=== PATIENT | female | born 1955 | race Caucasian/White ===

== ENCOUNTER → 2016-10-12 | Outpatient (CLI) | payer OTHER ==
[~2016-10-12] MED LIST: ATV5 PO; CLX20 PO; IBUP600T44 PO; OXYC-57 PO
--- NOTE | 2016-10-13 12:36 | MAMMOGRAPHY REPORT ---
BILATERAL DIGITAL SCREENING MAMMOGRAM TOMOSYNTHESIS WITH CAD: 10/12/2016 CLINICAL HISTORY: Routine screening examination. TECHNIQUE: Breast tomosynthesis in addition to standard 2D mammography was performed. Current study was also evaluated with a Computer Aided Detection (CAD) system. COMPARISON: Comparison is made to exams dated: 10/08/2015 mammogram, 10/02/2014 mammogram, 07/18/2013 mammogram, and 07/13/2011 mammogram - [facility]. BREAST COMPOSITION: The tissue of both breasts is almost entirely fatty. FINDINGS: There is stable nodularity in the lateral left breast. No suspicious mass, architectural distortion or cluster of microcalcifications is seen. IMPRESSION: ACR BI-RADS CATEGORY 1: NEGATIVE There is no mammographic evidence of malignancy. A 1 year screening mammogram is recommended. The p atient will receive written notification of the results. Approximately 10% of breast cancers are not detected with mammography. A negative mammographic repor t should not delay biopsy if a clinically suggestive mass is present. Petra Davidson M.D. ay/:10/12/2016 17:09:27 Fruit And Vegetable Packer: Kerry PITTS)(Kaycee), [facility] letter sent: Normal 1/2 BI-RADS Code: ACR BI-RADS Category 1: Negative
== END | disposition home or self-care (01) ==
LOC: C.MAMM 08:55
PROVIDERS: ATTEND Obstetrics & Gynecology
DX: Z12.31 Encounter for screening mammogram for malignant neoplasm of breast (principal)

== ENCOUNTER → 2017-10-13 | Outpatient (CLI) | payer OTHER ==
--- NOTE | 2017-10-13 15:17 | MAMMOGRAPHY REPORT ---
BILATERAL DIGITAL SCREENING MAMMOGRAM TOMOSYNTHESIS WITH CAD: 10/13/2017 CLINICAL HISTORY: Routine screening. Patient has no complaints. TECHNIQUE: Breast tomosynthesis in addition to standard 2D mammography was performed. Current study was also evaluated with a Computer Aided Detection (CAD) system. COMPARISON: Comparison is made to exams dated: 10/12/2016 mammogram, 10/08/2015 mammogram, 10/02/2014 m ammogram, 07/18/2013 mammogram, 07/14/2012 mammogram, and 07/13/2011 mammogram - [facility]. BREAST COMPOSITION: The tissue of both breasts is almost entirely fatty. FINDINGS: No suspicious masses, calcifications, or areas of architectural distortion are noted in ei ther breast. There has been no significant interval change compared to prior exams. IMPRESSION: ACR BI-RADS CATEGORY 1: NEGATIVE There is no mammographic evidence of malignancy. A 1 year screening mammogram is recommended. The pa tient will receive written notification of the results. Approximately 10% of breast cancers are not detected with mammography. A negative mammographic report should not delay biopsy if a clinically suggestive mass is present. Silke Recinos M.D. ah/:10/13/2017 14:40:12 Onion Farmer: Nakia PA(Thu)(M), [facility] letter sent: Normal 1/2 BI-RADS Code: ACR BI-RADS Category 1: Negative
== END | disposition home or self-care (01) ==
LOC: C.MAMM 09:10
PROVIDERS: ATTEND Physician Assistant
DX: Z12.31 Encounter for screening mammogram for malignant neoplasm of breast (principal)

== ENCOUNTER 2022-03-08 20:53 | Inpatient (IN) ==
[2022-03-08] MEDS ORDERED: STAT IV Infusion **Titration per Protocol STA (21:19)
[2022-03-08] MEDS ORDERED: dilTIAZem HCl 5 MG/ML 5 ML VIAL IV STA (21:19)
[2022-03-08 21:23] LABS: Basophils # (auto) 0.04 K/uL (0-0.2); Basophils % (auto) 0.5 %; Eosinophils # (auto) 0.19 K/uL (0-0.50); Eosinophils % (auto) 2.3 %; Hematocrit (blood only) 41.2 % (34.1-44.9); Hemoglobin 14.1 g/dl (12.0-16.0); Immature Granulocytes # (auto) 0.02 K/uL (0.00-0.02); Immature Granulocytes % (auto) 0.2 %; Lymphocytes # (auto) 3.52 K/uL (1.2-3.4); Lymphocytes % (auto) 42.8 %; Mean Corpuscular Hemoglobin 30.7 pg (25.0-34.0); Mean Corpuscular Hgb Conc 34.2 g/dL (32.0-36.0); Mean Corpuscular Volume 89.8 fL (80.0-100.0); Mean Platelet Volume 10.6 fL (9.4-12.3); Monocytes # (auto) 0.84 K/uL (0.24-0.82); Monocytes % (auto) 10.2 %; Neutrophils # (auto) 3.61 K/uL (1.4-6.5); Platelet Count 262 K/uL (130-400); RDW Coefficient of Variation 11.9 % (11.5-14.5); RDW Standard Deviation 38.6 fL (36.4-46.3); Red Blood Count 4.59 M/uL (3.93-5.22); White Blood Count 8.22 K/ul (4.8-10.8)
[2022-03-08] MEDS ORDERED: dilTIAZem HCL 125 MG in DEXTROSE 5% 100 ML IV SCH (21:30)
[2022-03-08] MEDS ORDERED: SODIUM CHLORIDE 0.9% 1000ML 1,000 ML IV SCH (21:30)
[2022-03-08 22:06] LABS: Troponin I High Sensitivity 12.9 pg/ml (0-14)
--- NOTE | 2022-03-08 22:06 | Emergency Department Note ---
History of Present Illness General Chief complaint: Tachycardia Stated complaint: ERATIC HEART BEAT, TACHYCARDIA Time Seen by Provider: 03/08/22 21:10 Source: patient Mode of arrival: ambulatory Limitations: no limitations History of Present Illness Provider complaint: palpitations This is a 67-year-old female who presents due to abrupt onset of palpitations. Patient denies prior history of palpitations, however states she does follow with cardiology for other problems. Patient states she sees Dr. Gibbs as they watch a mild form of hypertrophic obstructive cardiomyopathy on her. She states she did just have a recent outpatient echo and did wear an electrical monitor. Patient denies any recent illness, fevers or chills. She states she did have a Coke this afternoon which is unusual for her. She does admit to recent wine consumption which she states she does use periodically. She states her caffeine consumption has not otherwise changed and she felt she had been staying well- hydrated. She denies any coming pain or pressure, shortness of breath, dizziness, nausea or diaphoresis. Patient denies any change in bowel or bladder function. No recent leg swelling. Pt seen during a time of high acuity and national emergency pandemic while wearing PPE. Home Medications Medication Instructions Recorded Confirmed Type cholecalciferol (vitamin D3) 50 50 mcg PO DAILY 03/08/22 03/08/22 History mcg (2,000 unit) capsule (Vitamin D3) latanoprostene bunod 0.024 % eye 1 drp OPB HS 03/08/22 03/08/22 History drops (Vyzulta) lorazepam 0.5 mg tablet 0.5 - 1 mg PO DAILY PRN Anxiety 03/08/22 03/08/22 History losartan 50 mg tablet 50 mg PO QAM 03/08/22 03/08/22 History metoprolol succinate 100 mg 100 mg PO QAM 03/08/22 03/08/22 History tablet,extended release 24 hr apixaban 5 mg tablet (Eliquis) 5 mg PO Q12H #60 tabs 03/09/22 Rx Allergies Allergy/AdvReac Type Severity Reaction Status Date / Time morphine Allergy Severe RESP. Verified 03/08/22 22:25 DISTRESS Past Med/Surg History Social History Smoking Status: Never smoker Hx Alcohol Use: Yes Alcohol type: wine Hx Substance Use: No Preferred Language: Polish Communication Ability: Effective School Aide Required: No Beliefs That Will Affect Care: None marital status: Current Living Situation: Spouse Other Information That Helps Us Care for You: No Feels Safe at Home: Yes Safety Concerns: Feels Safe At This Time Assistive Devices: None Review of Systems A total of 10 systems reviewed and were otherwise negative All systems reviewed & are unremarkable except as noted in HPI & below Physical Exam Vital Signs Vital Signs - 24 hr 03/08/22 20:54 03/08/22 21:45 03/08/22 21:45 Temperature 36.9 C Temperature Source Temporal Artery Scan Pulse Rate 162 H Pulse Rate [Apical] 127 H Pulse Rate from SpO2 Sensor Respiratory Rate 20 25 H Respiratory Effort / Characteristics Non-Labored Respiratory Depth Normal Blood Pressure 157/79 H Blood Pressure [Right Arm] 121/77 Blood Pressure Mean 105 Blood Pressure Mean [Right Arm] 91 Blood Pressure Position Sitting Blood Pressure Position [Right Arm] Pulse Oximetry 96 93 95 Oxygen Delivery Method Room Air Room Air Room Air Sepsis Recent Fever Within 48 Hours No Sepsis New/Unexplained Change in Mental Status N/A Sepsis Action Taken by Nursing No Action Required 03/08/22 21:05 03/08/22 21:10 03/08/22 21:20 Temperature Temperature Source Pulse Rate 163 H 156 H 143 H Pulse Rate [Apical] Pulse Rate from SpO2 Sensor 144 H 146 H 122 H Respiratory Rate 21 24 20 Respiratory Effort / Characteristics Respiratory Depth Blood Pressure Blood Pressure [Right Arm] Blood Pressure Mean Blood Pressure Mean [Right Arm] Blood Pressure Position Blood Pressure Position [Right Arm] Pulse Oximetry 97 97 95 Oxygen Delivery Method Sepsis Recent Fever Within 48 Hours Sepsis New/Unexplained Change in Mental Status Sepsis Action Taken by Nursing 03/08/22 21:38 03/08/22 21:40 03/08/22 21:42 Temperature Temperature Source Pulse Rate 159 H 153 H Pulse Rate [Apical] Pulse Rate from SpO2 Sensor 150 H 152 H Respiratory Rate 16 20 Respiratory Effort / Characteristics Respiratory Depth Blood Pressure 136/100 Blood Pressure [Right Arm] Blood Pressure Mean 112 Blood Pressure Mean [Right Arm] Blood Pressure Position Blood Pressure Position [Right Arm] Pulse Oximetry 94 95 Oxygen Delivery Method Sepsis Recent Fever Within 48 Hours Sepsis New/Unexplained Change in Mental Status Sepsis Action Taken by Nursing 03/08/22 21:42 03/08/22 21:45 03/08/22 21:45 Temperature Temperature Source Pulse Rate 145 H 129 H Pulse Rate [Apical] Pulse Rate from SpO2 Sensor 141 H 127 H Respiratory Rate 24 23 Respiratory Effort / Characteristics Respiratory Depth Blood Pressure 121/77 Blood Pressure [Right Arm] Blood Pressure Mean 91 Blood Pressure Mean [Right Arm] Blood Pressure Position Blood Pressure Position [Right Arm] Pulse Oximetry 95 93 Oxygen Delivery Method Sepsis Recent Fever Within 48 Hours Sepsis New/Unexplained Change in Mental Status Sepsis Action Taken by Nursing 03/08/22 21:50 03/08/22 21:50 03/08/22 21:55 Temperature Temperature Source Pulse Rate 104 H Pulse Rate [Apical] Pulse Rate from SpO2 Sensor 114 H Respiratory Rate 23 Respiratory Effort / Characteristics Respiratory Depth Blood Pressure 126/79 128/95 Blood Pressure [Right Arm] Blood Pressure Mean 94 106 Blood Pressure Mean [Right Arm] Blood Pressure Position Blood Pressure Position [Right Arm] Pulse Oximetry 94 Oxygen Delivery Method Sepsis Recent Fever Within 48 Hours Sepsis New/Unexplained Change in Mental Status Sepsis Action Taken by Nursing 03/08/22 21:55 03/08/22 22:00 03/08/22 22:00 Temperature Temperature Source Pulse Rate 139 H 127 H Pulse Rate [Apical] Pulse Rate from SpO2 Sensor 131 H 121 H Respiratory Rate 23 20 Respiratory Effort / Characteristics Respiratory Depth Blood Pressure 127/90 Blood Pressure [Right Arm] Blood Pressure Mean 102 Blood Pressure Mean [Right Arm] Blood Pressure Position Blood Pressure Position [Right Arm] Pulse Oximetry 95 94 Oxygen Delivery Method Sepsis Recent Fever Within 48 Hours Sepsis New/Unexplained Change in Mental Status Sepsis Action Taken by Nursing 03/08/22 22:05 03/08/22 22:05 03/08/22 22:12 Temperature Temperature Source Pulse Rate 147 H Pulse Rate [Apical] Pulse Rate from SpO2 Sensor 144 H Respiratory Rate 22 Respiratory Effort / Characteristics Respiratory Depth Blood Pressure 124/97 110/87 Blood Pressure [Right Arm] Blood Pressure Mean 106 94 Blood Pressure Mean [Right Arm] Blood Pressure Position Blood Pressure Position [Right Arm] Pulse Oximetry 93 Oxygen Delivery Method Sepsis Recent Fever Within 48 Hours Sepsis New/Unexplained Change in Mental Status Sepsis Action Taken by Nursing 03/08/22 22:12 03/08/22 22:15 03/08/22 22:15 Temperature Temperature Source Pulse Rate 152 H 148 H Pulse Rate [Apical] Pulse Rate from SpO2 Sensor 145 H 145 H Respiratory Rate 21 24 Respiratory Effort / Characteristics Respiratory Depth Blood Pressure 114/88 Blood Pressure [Right Arm] Blood Pressure Mean 96 Blood Pressure Mean [Right Arm] Blood Pressure Position Blood Pressure Position [Right Arm] Pulse Oximetry 93 94 Oxygen Delivery Method Sepsis Recent Fever Within 48 Hours Sepsis New/Unexplained Change in Mental Status Sepsis Action Taken by Nursing 03/08/22 22:20 03/08/22 23:31 03/09/22 00:26 Temperature Temperature Source Pulse Rate 143 H Pulse Rate [Apical] 145 H 133 H Pulse Rate from SpO2 Sensor 142 H Respiratory Rate 20 18 18 Respiratory Effort / Characteristics Non-Labored Spontaneous Non-Labored Spontaneous Respiratory Depth Normal Normal Blood Pressure Blood Pressure [Right Arm] 111/81 113/73 Blood Pressure Mean Blood Pressure Mean [Right Arm] 91 86 Blood Pressure Position Blood Pressure Position [Right Arm] Sitting Pulse Oximetry 93 98 98 Oxygen Delivery Method Room Air Room Air Sepsis Recent Fever Within 48 Hours Sepsis New/Unexplained Change in Mental Status Sepsis Action Taken by Nursing 03/09/22 01:30 Temperature Temperature Source Pulse Rate Pulse Rate [Apical] 119 H Pulse Rate from SpO2 Sensor Respiratory Rate 16 Respiratory Effort / Characteristics Non-Labored Spontaneous Respiratory Depth Normal Blood Pressure Blood Pressure [Right Arm] 106/74 Blood Pressure Mean Blood Pressure Mean [Right Arm] 84 Blood Pressure Position Blood Pressure Position [Right Arm] Pulse Oximetry 93 Oxygen Delivery Method Room Air Sepsis Recent Fever Within 48 Hours Sepsis New/Unexplained Change in Mental Status Sepsis Action Taken by Nursing GENERAL: alert, well appearing, well nourished, no distress, non-toxic EYE EXAM: normal conjunctiva, PERRL and EOM's grossly intact OROPHARYNX: no exudate, no erythema, lips, buccal mucosa, and tongue normal and mucous membranes are moist NECK: supple, no nuchal rigidity, no adenopathy, non-tender LUNGS: Clear to auscultation. Normal chest wall mechanics, no w/r/r HEART: no murmurs, S1 normal and S2 normal ABDOMEN: abdomen soft, non-tender, normo-active bowel sounds, no masses, no rebound or guarding. BACK: Back is symmetrical on inspection and there is no deformity, no midline tenderness, no CVA tenderness. SKIN: no rashes and no bruising UPPER EXTREMITIES: upper extremities are grossly normal. FROM, nml pulses b/l. LOWER EXTREMITIES: No pitting edema. FROM, nml pulses b/l. NEURO EXAM: Normal sensorium, cranial nerves II-XII grossly intact, normal speech, no gross weakness of arms, no gross weakness of legs. Gross sensation intact. Course Course 2144: Pt updated on results. 2205: Pt now requesting to go home. Administered Medications Discontinued Medications Apixaban (Apixaban 2.5 Mg Tab) 5 mg PO BID KENTRELL Stop: 04/08/22 14:59 Last Admin: 03/09/22 15:15 Dose: 5 mg Documented By: EMMY Diltiazem HCl (Diltiazem Hcl 5 Mg/Ml 5 Ml Vial) 10 mg IV NOW STA Stop: 03/08/22 21:20 Last Admin: 03/08/22 21:28 Dose: 10 mg Documented By: CHELO Co-signed By: GILDA Heparin Sodium (Porcine) (Heparin Sod (Porcine) 1000 Unit/Ml) Confirm Administered Dose 1,000 units .ROUTE .STK-MED ONE Stop: 03/09/22 08:01 Last Admin: 03/09/22 08:13 Dose: 4,500 units Documented By: [id number] Co-signed By: JOS Heparin Sodium/Dextrose (Heparin Iv Adult Wt-Based Low-Dose *No* Bolus Protocol) 1 each IV ONE ONE; Protocol Stop: 03/08/22 22:18 Last Admin: 03/08/22 23:36 Dose: 1 each Documented By: VIDAL Sodium Chloride (Nss 1000ml) 1,000 mls @ 125 mls/hr IV .Q8H KENTRELL Stop: 04/07/22 21:29 Last Infusion: 03/09/22 02:10 Dose: 0 mls/hr Documented By: Admin: 03/08/22 21:41 Dose: 125 mls/hr Documented By: CHELO Diltiazem HCl 125 mg/ Dextrose 125 mls @ 5 mls/hr IV .Q24H KENTRELL; Protocol Stop: 04/07/22 21:29 Last Titration: 03/09/22 13:14 Dose: 0 mg/hr, 0 mls/hr Documented By: GUERRERO Co-signed By: HERMAN Titration: 03/09/22 00:54 Dose: 7.5 mg/hr, 7.5 mls/hr Documented By: VIDAL Co-signed By: NOEMI Titration: 03/08/22 23:14 Dose: 10 mg/hr, 10 mls/hr Documented By: CHELO Co-signed By: VIDAL Titration: 03/08/22 22:14 Dose: 7.5 mg/hr, 7.5 mls/hr Documented By: CHELO Co-signed By: [email or web address] Admin: 03/08/22 21:42 Dose: 5 mg/hr, 5 mls/hr Documented By: CHELO Co-signed By: GILDA Heparin Sodium/Dextrose (Heparin Sodium/Dextrose) 25,000 units in 500 mls @ 21 mls/hr IV .[id number] [facility]; Protocol Stop: 04/07/22 22:29 Last Titration: 03/09/22 13:29 Dose: 0 units/hr, 0 mls/hr Documented By: EMMY Co-signed By: GUERRERO Titration: 03/09/22 08:14 Dose: 1,050 units/hr, 21 mls/hr Documented By: [id number] Co-signed By: JOS Admin: 03/08/22 23:13 Dose: 850 units/hr, 17 mls/hr Documented By: CHELO Co-signed By: VIDAL Magnesium Sulfate/Dextrose (Magnesium Sulfate / D5w) 1 gm in 100 mls @ 100 mls/hr IV NOW STA Stop: 03/08/22 23:42 Last Infusion: 03/09/22 03:03 Dose: 0 mls/hr Documented By: Admin: 03/09/22 01:52 Dose: 100 mls/hr Documented By: VIDAL Insulin Aspart (Insulin Aspart Per Unit) 0 units SC Q6 [facility] Stop: 04/08/22 05:59 Last Admin: 03/09/22 12:11 Dose: Not Given Documented By: Admin: 03/09/22 06:20 Dose: 1 units Documented By: WILL Co-signed By: CIELO Losartan Potassium (Losartan Potassium 50 Mg Tab) 50 mg PO QAM [facility] Stop: 04/08/22 08:59 Last Admin: 03/09/22 08:22 Dose: 50 mg Documented By: [id number] Magnesium Sulfate/Dextrose (Magnesium Sulfate 1gm / D5w Bag) Confirm Administered Dose 1 gm IV .STK-MED ONE Stop: 03/09/22 01:50 Last Admin: 03/09/22 01:52 Dose: Not Given Documented By: VIDAL Metoprolol Succinate (Metoprolol Succ 50mg Ext Rel Tab) 100 mg PO QAM [facility] Stop: 04/08/22 08:59 Last Admin: 03/09/22 08:22 Dose: 100 mg Documented By: [id number] Miscellaneous (Stat Iv Infusion Titration Per Protocol) 1 each N/A NOW STA Stop: 03/08/22 21:20 Last Admin: 03/08/22 21:45 Dose: 1 each Documented By: CHELO Miscellaneous (Vyzulta~Order Awaiting Action) 1 each N/A QS [facility]LL Stop: 04/08/22 07:59 Last Admin: 03/09/22 15:23 Dose: Not Given Documented By: Admin: 03/09/22 08:22 Dose: Not Given Documented By: [id number] Potassium Chloride (Potassium Chloride Crtab 20 Meq Tabcr) 40 meq PO NOW STA Stop: 03/08/22 22:43 Last Admin: 03/08/22 23:15 Dose: 40 meq Documented By: CHELO Vitamin D (Cholecalciferol 1,000 Units 25 Mcg Tab) 2,000 units PO DAILY KENTRELL Stop: 04/08/22 08:59 Last Admin: 03/09/22 08:22 Dose: 2,000 units Documented By: [id number] Critical Care Time Critical Care Time: Yes Total Critical Care Time: 42 Critical care of 42 min performed to assess and manage high likelihood of life- threatening dysrhythmia, involving labs and imaging performed with assessment to evaluate dysrhythmia diagnosis with frequent reassessment. This time includes bedside time, treatment discussions with patient/family/consultants, documentation time and excludes procedure time. Medical Decision Making Differential Diagnosis Differential diagnosis includes etiologies such as premature contractions, electrolyte abnormality, cardiac dysrhythmia, thyroid dysfunction, pulmonary embolism, infection, gastrointestinal, as well as others were entertained. Medical Records Attestation: I reviewed the patient's medical records. Home Medications Current Medication List: was personally reviewed by me Laboratory Data Attestation: I reviewed the patient's lab results. Result diagrams: 03/09/22 05:21 03/09/22 05:21 Lab Results 03/08/22 03/08/22 03/08/22 Range/Units 21:10 21:10 22:18 WBC 8.22 (4.8-10.8) K/ul RBC 4.59 (3.93-5.22) M/uL Hgb 14.1 (12.0-16.0) g/dl Hct 41.2 (34.1-44.9) % MCV 89.8 (80.0-100.0) fL MCH 30.7 (25.0-34.0) pg MCHC 34.2 (32.0-36.0) g/dL RDW Std Deviation 38.6 (36.4-46.3) fL RDW Coeff of Ida 11.9 (11.5-14.5) % Plt Count 262 (130-400) K/uL MPV 10.6 (9.4-12.3) fL Immature Gran % (Auto) 0.2 % Neut % (Auto) 44.0 % Lymph % (Auto) 42.8 % [place] % (Auto) 10.2 % Eos % (Auto) 2.3 % Baso % (Auto) 0.5 % Neut # (Auto) 3.61 (1.4-6.5) K/uL Lymph # (Auto) 3.52 H (1.2-3.4) K/uL [place] # (Auto) 0.84 H (0.24-0.82) K/uL Eos # (Auto) 0.19 (0-0.50) K/uL Baso # (Auto) 0.04 (0-0.2) K/uL Immature Gran # (Auto) 0.02 (0.00-0.02) K/uL APTT 25.0 (21.0-31.0) Seconds PTT Ratio 0.9 D-Dimer 250 (0-500) ug/L FEU Sodium 136 (136-145) mmol/L Potassium 3.5 (3.5-5.1) mmol/L Chloride 102 (98-107) mmol/L Carbon Dioxide 24 (21-32) mmol/L Anion Gap 10 (3-11) BUN 14 (6-23) mg/dl Creatinine 0.83 (0.6-1.2) mg/dl Est Cr Clr Drug Dosing 76.2 ml/min Est GFR ( Amer) 85.2 ml/min Est GFR (Non-Af Amer) 73.5 ml/min BUN/Creatinine Ratio 16.9 (10-20) Glucose 260 H (70-99(Fasting)) mg/dl Calcium 9.4 (8.5-10.1) mg/dl Magnesium 1.8 (1.7-2.4) mg/dl Total Bilirubin 0.5 (0.2-1.0) mg/dl AST 24 (13-39) U/L ALT 31 (7-52) U/L Alkaline Phosphatase 64 (34-104) U/L Troponin I High Sens 12.9 (0-14) pg/ml Total Protein 7.2 (6.0-8.3) gm/dl Albumin 4.4 (3.4-5.0) gm/dl Globulin 2.8 (2.5-4.0) gm/dl Albumin/Globulin Ratio 1.6 (0.9-2) Lipase (11-82) U/L TSH (0.300-4.500) uIu/ml Lyme Disease IgG Ab (Negative) Lyme Disease IgM Ab (Negative) SARS-CoV-2, RNA, NAAT (NEGATIVE) 03/08/22 03/08/22 03/08/22 Range/Units 22:18 22:18 22:18 WBC (4.8-10.8) K/ul RBC (3.93-5.22) M/uL Hgb (12.0-16.0) g/dl Hct (34.1-44.9) % MCV (80.0-100.0) fL MCH (25.0-34.0) pg MCHC (32.0-36.0) g/dL RDW Std Deviation (36.4-46.3) fL RDW Coeff of Ida (11.5-14.5) % Plt Count (130-400) K/uL MPV (9.4-12.3) fL Immature Gran % (Auto) % Neut % (Auto) % Lymph % (Auto) % [place] % (Auto) % Eos % (Auto) % Baso % (Auto) % Neut # (Auto) (1.4-6.5) K/uL Lymph # (Auto) (1.2-3.4) K/uL [place] # (Auto) (0.24-0.82) K/uL Eos # (Auto) (0-0.50) K/uL Baso # (Auto) (0-0.2) K/uL Immature Gran # (Auto) (0.00-0.02) K/uL APTT (21.0-31.0) Seconds PTT Ratio D-Dimer (0-500) ug/L FEU Sodium (136-145) mmol/L Potassium (3.5-5.1) mmol/L Chloride (98-107) mmol/L Carbon Dioxide (21-32) mmol/L Anion Gap (3-11) BUN (6-23) mg/dl Creatinine (0.6-1.2) mg/dl Est Cr Clr Drug Dosing ml/min Est GFR ( Amer) ml/min Est GFR (Non-Af Amer) ml/min BUN/Creatinine Ratio (10-20) Glucose (70-99(Fasting)) mg/dl Calcium (8.5-10.1) mg/dl Magnesium (1.7-2.4) mg/dl Total Bilirubin (0.2-1.0) mg/dl AST (13-39) U/L ALT (7-52) U/L Alkaline Phosphatase (34-104) U/L Troponin I High Sens 20.9 H (0-14) pg/ml Total Protein (6.0-8.3) gm/dl Albumin (3.4-5.0) gm/dl Globulin (2.5-4.0) gm/dl Albumin/Globulin Ratio (0.9-2) Lipase 47 (11-82) U/L TSH 2.737 (0.300-4.500) uIu/ml Lyme Disease IgG Ab Negative (Negative) Lyme Disease IgM Ab Negative (Negative) SARS-CoV-2, RNA, NAAT (NEGATIVE) 03/08/22 Range/Units 23:24 WBC (4.8-10.8) K/ul RBC (3.93-5.22) M/uL Hgb (12.0-16.0) g/dl Hct (34.1-44.9) % MCV (80.0-100.0) fL MCH (25.0-34.0) pg MCHC (32.0-36.0) g/dL RDW Std Deviation (36.4-46.3) fL RDW Coeff of Ida (11.5-14.5) % Plt Count (130-400) K/uL MPV (9.4-12.3) fL Immature Gran % (Auto) % Neut % (Auto) % Lymph % (Auto) % [place] % (Auto) % Eos % (Auto) % Baso % (Auto) % Neut # (Auto) (1.4-6.5) K/uL Lymph # (Auto) (1.2-3.4) K/uL [place] # (Auto) (0.24-0.82) K/uL Eos # (Auto) (0-0.50) K/uL Baso # (Auto) (0-0.2) K/uL Immature Gran # (Auto) (0.00-0.02) K/uL APTT (21.0-31.0) Seconds PTT Ratio D-Dimer (0-500) ug/L FEU Sodium (136-145) mmol/L Potassium (3.5-5.1) mmol/L Chloride (98-107) mmol/L Carbon Dioxide (21-32) mmol/L Anion Gap (3-11) BUN (6-23) mg/dl Creatinine (0.6-1.2) mg/dl Est Cr Clr Drug Dosing ml/min Est GFR ( Amer) ml/min Est GFR (Non-Af Amer) ml/min BUN/Creatinine Ratio (10-20) Glucose (70-99(Fasting)) mg/dl Calcium (8.5-10.1) mg/dl Magnesium (1.7-2.4) mg/dl Total Bilirubin (0.2-1.0) mg/dl AST (13-39) U/L ALT (7-52) U/L Alkaline Phosphatase (34-104) U/L Troponin I High Sens (0-14) pg/ml Total Protein (6.0-8.3) gm/dl Albumin (3.4-5.0) gm/dl Globulin (2.5-4.0) gm/dl Albumin/Globulin Ratio (0.9-2) Lipase (11-82) U/L TSH (0.300-4.500) uIu/ml Lyme Disease IgG Ab (Negative) Lyme Disease IgM Ab (Negative) SARS-CoV-2, RNA, NAAT NEGATIVE (NEGATIVE) Imaging Data My Impression: X-ray: I interpreted the following studies. Chest: A single view study of the chest was reviewed and was negative for cardiomegaly, focal infiltrate, effusion, pulmonary edema, or wide mediastinum. ECG Data Attestation: I personally reviewed and interpreted this ECG as follows: Indication: + palpitations Rate (beats per minute): 155 Rhythm: + atrial fibrillation ECG Intervals/blocks: + Normal QRS and + Normal QT ECG [place]: + Left axis deviation ECG ST segments: + Nonspecific ST abnormalities MDM Narrative An order was placed for continuous cardiac monitoring. The monitor shows a rate of _132_ with _atrial fibrillation__ rhythm. This is a 67-year-old female presents emergency department with concern for palpitations. Patient placed on telemetry and EKG performed. I was asked to come to the room urgently due to the patient's symptoms and concern for elevated heart rate. Patient found to have atrial fibrillation with RVR. No prior history. Patient does have history of hypertrophic obstructive cardiomyopathy and does follow with cardiology routinely. Labs drawn and sent, chest x-ray performed. These were reassuring. Patient was started on Cardizem bolus and drip for rate control. She was given cautious IV fluid rehydration. Due to patient's prior history of HOCM, case was discussed with on-call cardiology as a precaution. They were in agreement with plan for Cardizem and we also discussed anticoagulation. Heparin drip was also started. Case discussed with hospitalist for additional evaluation and management. While patient did not have any significant electrolyte abnormalities, her potassium and magnesium were optimized in the emergency room out of precaution. No evidence of thyroid storm or occult infection. Patient was noted to have hyperglycemia, no evidence of DKA. Impression & Plan Palpitations, Atrial fibrillation with rapid ventricular response, Elevated troponin Discharge Plan Visit Data Chief Complaint: Tachycardia Stated Complaint: ERATIC HEART BEAT, TACHYCARDIA ED Provider: China Barajas Discharge Problem: Palpitations, Atrial fibrillation with rapid ventricular response, Elevated troponin Patient Disposition: Admitted As Inpatient Discharge Instructions Interventions: ED Discharge Assessment Last Done: 03/09/22 01:56
[2022-03-08] MEDS ORDERED: Heparin IV Adult Wt-Based Low-Dose *NO* Bolus Protocol IV ONE (22:17)
[2022-03-08 22:18] LABS: Albumin Globulin Ratio 1.6 (0.9-2); Albumin Level 4.4 gm/dl (3.4-5.0); BUN Creatinine Ratio 16.9 (10-20); Bilirubin,Total 0.5 mg/dl (0.2-1.0); Calcium 9.4 mg/dl (8.5-10.1); Creatinine Clr Calc Pharmacy 76.2 ml/min; Est GFR (African American) 85.2 ml/min; Est GFR (Non-African American) 73.5 ml/min; Globulin 2.8 gm/dl (2.5-4.0); Magnesium 1.8 mg/dl (1.7-2.4); Potassium 3.5 mmol/L (3.5-5.1); Total Protein 7.2 gm/dl (6.0-8.3)
[2022-03-08] MEDS ORDERED: HEPARIN SODIUM/DEXTROSE 25,000 UNITS/500 ML BAG IV SCH (22:30)
[2022-03-08 22:40] LABS: D Dimer 250 ug/L FEU (0-500)
[2022-03-08] MEDS ORDERED: POTASSIUM CHLORIDE CRTAB 20 MEQ TABCR PO STA (22:42)
[2022-03-08] MEDS ORDERED: MAGNESIUM SULFATE / D5W 1 GM/100 ML BAG IV STA (22:43)
[2022-03-08 22:57] LABS: Troponin I High Sensitivity 20.9 pg/ml (0-14)
[2022-03-08 23:07] LABS: Lyme Ab IgG w/WB Rflx Negative (Negative); Lyme Ab IgM w/WB Rflx Negative (Negative); Partial Thromboplastin Ratio 0.9
[2022-03-09] MEDS ORDERED: MAGNESIUM SULFATE 1GM / D5W BAG IV ONE (01:49)
[2022-03-09] MEDS ORDERED: NITROGLYCERIN SL 0.4 MG/TAB TAB SL PRN (02:05)
[2022-03-09] MEDS ORDERED: LORazepam 0.5 MG TAB PO PRN (02:05)
[2022-03-09] MEDS ORDERED: POLYETHYLENE (MIRALAX) 17 GM PACK PO PRN (02:05)
[2022-03-09] MEDS ORDERED: ACETAMINOPHEN 325 MG TAB PO PRN (02:05)
[2022-03-09] MEDS ORDERED: GLUCAGON FOR INJ 1 MG VIAL IM PRN (02:15)
[2022-03-09] MEDS ORDERED: GLUCOSE 40% GEL 15 GM TUBE PO PRN (02:15)
[2022-03-09] MEDS ORDERED: DEXTROSE 50% 50 ML SYRINGE IV PRN (02:15)
[2022-03-09] MEDS ORDERED: GLUCOSE 10 TAB/TUBE PO PRN (02:15)
[2022-03-09] MEDS ORDERED: CARBOHYDRATES FOR HYPOGLYCEMIA PO PRN (02:15)
--- NOTE | 2022-03-09 03:19 | History and Physical Report ---
DATE OF ADMISSION: 03/09/2022. CHIEF COMPLAINT: Rapid AFib. HISTORY OF PRESENT ILLNESS: This 67-year-old female with past medical history significant for prediabetes, hypertrophic nonobstructive cardiomyopathy, palpitations, hypertension, obesity, uterine leiomyoma, history of excessive menstruation, glaucoma, anxiety, presents with rapid AFib. The patient says he felt some numbness in the chest when checked pulse was beating fast and irregular. She came to the hospital and she was found in rapid AFib and ER talked to Cardiology and placed on heparin and Cardizem drip. Currently, there is no chest pain, denies any shortness of breath, still feels some palpitations. No headache, no dizziness, no blurred visions, no earache, no runny nose, no sore throat. No cough. Appetite is okay. No nausea, no vomiting, no abdominal pain. Normal bowel and bladder movements. No swelling in the legs. Otherwise, ambulating okay. ALLERGIES: MORPHINE. PAST MEDICAL HISTORY: As mentioned above. PAST SURGICAL HISTORY: Colonoscopy with removal of the lesions, laparoscopic cholecystectomy, 3 knee surgeries, hemorrhoidectomy, surgery for trigger finger of right hand, relieve inner eye pressure, cataracts, total abdominal hysterectomy with removal of tubes. MEDICATIONS: The patient is on vitamin D 50 mg p.o. daily, Vyzulta one drop ophthalmic at bedtime, lorazepam 0.5-1 mg p.o. daily p.r.n. for anxiety, losartan 50 mg p.o. daily, metoprolol succinate 100 mg p.o. a.m. FAMILY HISTORY: Significant for brother had prostate cancer, heart disorder; father had lung cancer; mother had lung cancer, of old age; maternal grandfather had heart disorder; maternal grandmother had heart disorder. SOCIAL HISTORY: . No smoking. Alcohol, rarely. No drug use. REVIEW OF SYSTEMS: As per HPI. Rest of review of systems is negative. PHYSICAL EXAMINATION: GENERAL: The patient is alert, oriented, not in acute distress. VITAL SIGNS: Temperature 36.9, pulse when she came in, it was in 160s, currently 133, blood pressure 113/73, oxygen 98% on room air. HEENT: Pupils equal, round and reactive to light. Oral mucosa moist. NECK: No JVD, no neck masses. No carotid bruits. CARDIOVASCULAR: S1 and S2 heard, tachycardia, irregular rhythm. RESPIRATORY SYSTEM: Normal AP diameter. No accessory muscle use. No wheezing, no crackles. ABDOMEN: Soft, bowel sounds present, nontender, no distention. CENTRAL NERVOUS SYSTEM: Cranial nerves II through XII grossly intact, nonfocal. EXTREMITIES: No edema, no erythema. LABORATORY DATA: WBC 8.2, hemoglobin 14.1, hematocrit 41.2, platelets 262. APTT 25, D-dimer 250. Sodium 136, potassium 3.5, chloride 102, bicarbonate 24, BUN 14, creatinine 0.8, serum glucose 260, calcium 9.4, magnesium 1.8, total bilirubin 0.5, AST 24, ALT 31, alkaline phosphatase 64. Troponin I high sensitivity 20.9, lipase 47. TSH is 2.7. Lyme screen negative. SARS-CoV-2 rapid test negative. IMAGING DATA: Chest x-ray, no acute findings. EKG, AFib with rapid ventricular response at a rate of 155. ST depression in inferior and lateral leads. ASSESSMENT AND PLAN: This is a 67-year-old female, who presents with rapid AFib. 1. History of rapid AFib . hx of hypertrophic cardiomyopathy. Started on Cardizem drip and IV heparin, which will be continued. Continue home metoprolol succinate, tele monitoring, echocardiogram, serial cardiac enzymes. Cardiology consult, closely monitor. 2. History of hypertrophic cardiomyopathy, follows with Cardiology. She had an echo on 02/10/2022, showing asymmetric hypertrophy involves the septum thickness measuring 2.4 cm at mid septum. Follow repeat echo. Recently had zio patch . There is a plan for cardiac MRI as per the Cardiology notes. Also plan to discuss about the defibrillator implantation as per the Cardiology notes. Await cardiac input. 3. Hypertension. Continue losartan and metoprolol succinate. Currently on Cardizem drip. We will monitor the blood pressure. 4. History of anxiety. On Ativan p.r.n. 5. Vitamin D deficiency, vitamin supplementation. 6. Prediabetes. Sugars are running at 260. Follow HbA1c level, insulin sliding scale. 7. Deep venous thrombosis prophylaxis. On IV heparin. DISPOSITION: Closely monitor in the tele floor. Level 1 full code. Expect to discharge home and follow with family doctor. Job ID: [id number] [facility]
[2022-03-09 06:08] LABS: Basophils # (auto) 0.03 K/uL (0-0.2); Basophils % (auto) 0.3 %; Hematocrit (blood only) 41.7 % (34.1-44.9); Immature Granulocytes # (auto) 0.02 K/uL (0.00-0.02); Immature Granulocytes % (auto) 0.2 %; Lymphocytes # (auto) 2.28 K/uL (1.2-3.4); Lymphocytes % (auto) 25.2 %; Mean Corpuscular Hemoglobin 30.6 pg (25.0-34.0); Mean Corpuscular Hgb Conc 33.6 g/dL (32.0-36.0); Mean Platelet Volume 11.6 fL (9.4-12.3); Monocytes # (auto) 0.95 K/uL (0.24-0.82); Monocytes % (auto) 10.5 %; Neutrophils # (auto) 5.78 K/uL (1.4-6.5); Neutrophils % (auto) 63.8 %; Platelet Count 226 K/uL (130-400); RDW Coefficient of Variation 11.9 % (11.5-14.5); RDW Standard Deviation 39.8 fL (36.4-46.3); Red Blood Count 4.58 M/uL (3.93-5.22); White Blood Count 9.06 K/ul (4.8-10.8)
[2022-03-09] MEDS: INSULIN ASPART PER UNIT SC SCH ×2 (06:20→12:11)
[2022-03-09 06:33] LABS: Partial Thromboplastin Time 27.3 Seconds (21.0-31.0)
[2022-03-09 06:45] LABS: Troponin I High Sensitivity 91.4 pg/ml (0-14)
[2022-03-09 07:00] LABS: BUN Creatinine Ratio 16.1 (10-20); Est GFR (African American) 108.9 ml/min; Magnesium 2.1 mg/dl (1.7-2.4); Potassium 4.1 mmol/L (3.5-5.1)
[2022-03-09 07:17] LABS: Estimated Average Glucose 151 mg/dl; Hemoglobin A1C 6.9 % (4.5-5.6)
--- NOTE | 2022-03-09 07:17 | XRay Report ---
XR chest 1V portable HISTORY: 67 years-old Female palpitations acute chest pain with cardiac palpitations COMPARISON: None TECHNIQUE: Portable AP view of the chest FINDINGS: The cardiomediastinal and hilar silhouettes are within normal limits. There is no pneumothorax, pleur al effusion, airspace consolidation or overt pulmonary edema. The bones of the chest appear grossly i ntact. IMPRESSION: No acute process. ACT 112: Negative or not required by law. The above report was generated using voice recognition software. It may contain grammatical, syntax o r spelling errors. Electronically signed by: Nakul Collazo M.D. 03/09/2022 7:16 AM
[2022-03-09] MEDS ORDERED: HEPARIN SOD (PORCINE) 1000 UNIT/ML ONE (08:00)
[2022-03-09] MEDS: [UNRECOGNIZED DRUG - REMARK] SCH ×2 (08:22→15:23)
[2022-03-09] MEDS ORDERED: METOPROLOL SUCC 50MG EXT REL TAB PO SCH (09:00)
[2022-03-09] MEDS ORDERED: CHOLECALCIFEROL 1,000 UNITS 25 MCG TAB PO SCH (09:00)
[2022-03-09] MEDS ORDERED: LOSARTAN POTASSIUM 50 MG TAB PO SCH (09:00)
--- NOTE | 2022-03-09 10:53 | Cardiology Consultation ---
Date of Consultation March 09, 2022 Assessment & Plan (1) Atrial fibrillation with rapid ventricular response: (2) HOCM (hypertrophic obstructive cardiomyopathy): (3) Hypertension: (4) Prediabetes: (5) Elevated troponin: Plan Pt spontaneously converted to sinus this AM now feeling well discussed the pathophysiology, treatment options and alternatives with patient and her at bedside will d/c heparin gtt start eliquis ok to d/c to home cont previous dose of metoprolol cont losartan, may uptitrate if necessary ok to d/c to home today after receiving first dose of Eliquis History of Present Illness Attending Physician: Tesfaye Tucker MD History of Present Illness PMHX: 1.Hypertrophic obstructive cardiomyopathy, genetic screen negative 2.Hypertension. Allergies Allergy/AdvReac Type Severity Reaction Status Date / Time morphine Allergy Severe RESP. Verified 03/08/22 22:25 DISTRESS Home Medications Medication Instructions Recorded Confirmed Type cholecalciferol (vitamin D3) 50 50 mcg PO DAILY 03/08/22 03/08/22 History mcg (2,000 unit) capsule (Vitamin D3) latanoprostene bunod 0.024 % eye 1 drp OPB HS 03/08/22 03/08/22 History drops (Vyzulta) lorazepam 0.5 mg tablet 0.5 - 1 mg PO DAILY PRN Anxiety 03/08/22 03/08/22 History losartan 50 mg tablet 50 mg PO QAM 03/08/22 03/08/22 History metoprolol succinate 100 mg 100 mg PO QAM 03/08/22 03/08/22 History tablet,extended release 24 hr Patient History Social History Smoking Status: Never smoker Hx Alcohol Use: Yes Alcohol type: wine Hx Substance Use: No Preferred Language: Maori Communication Ability: Effective Layout Mechanic Required: No Beliefs That Will Affect Care: None Current Living Situation: Spouse Other Information That Helps Us Care for You: No Feels Safe at Home: Yes and No Is there a partner from a previous relationship who is making you feel unsafe now?: No Any Concerns about Your Family Situation: No Would You Like to Speak to Someone About Your Situation: No Safety Concerns: Feels Safe At This Time Assistive Devices: None Results & Data ([facility]) Vital Signs (Past 12 Hours) Vital Signs Temp Pulse Pulse Resp BP Pulse Ox O2 Del Method 03/09/22 09:05 36.9 C 91 H 18 130/89 96 Room Air 03/09/22 08:19 36.9 C 91 H 18 130/89 96 Room Air 03/09/22 06:30 113 H 17 118/80 96 Room Air 03/09/22 06:03 17 125/73 94 Room Air 03/09/22 03:04 113 H 18 120/87 93 Room Air 03/09/22 02:38 109 H 16 92/74 L 92 Room Air 03/09/22 01:30 119 H 16 106/74 93 Room Air 03/09/22 00:26 133 H 18 113/73 98 Room Air 03/08/22 23:31 145 H 18 111/81 98 Room Air Diagnostic Findings Echocardiogram February 10, 2022 The left ventricular cavity size is normal. The LV wall thickness is moderately increased (concentric). There is asymmetric left ventricular hypertrophy. The asymmetric hypertrophy involves the septum thickness measuring 2.4 cm at mid septum The resting peak instantaneous left ventricular outflow tract gradient is 14 mm Hg. The inducible peak instantaneous left ventricular outflow tract gradient with Valsalva is 80 mm Hg. There is chordal systolic anterior motion of the anterior mitral valve leaflet at rest Mild secondary mitral regurgitation is present
--- NOTE | 2022-03-09 14:34 | Discharge Summary ---
Date of Service March 09, 2022 Admission HPI Per Admitting Provider This 67-year-old female with past medical history significant for prediabetes, hypertrophic nonobstructive cardiomyopathy, palpitations, hypertension, obesity, uterine leiomyoma, history of excessive menstruation, glaucoma, anxiety, presents with rapid AFib. The patient says he felt some numbness in the chest when checked pulse was beating fast and irregular. She came to the hospital and she was found in rapid AFib and ER talked to Cardiology and placed on heparin and Cardizem drip. Currently, there is no chest pain, denies any shortness of breath, still feels some palpitations. No headache, no dizziness, no blurred visions, no earache, no runny nose, no sore throat. No cough. Appetite is okay. No nausea, no vomiting, no abdominal pain. Normal bowel and bladder movements. No swelling in the legs. Otherwise, ambulating okay. Admission Exam Per Admitting Provider GENERAL: The patient is alert, oriented, not in acute distress. VITAL SIGNS: Temperature 36.9, pulse when she came in, it was in 160s, currently 133, blood pressure 113/73, oxygen 98% on room air. HEENT: Pupils equal, round and reactive to light. Oral mucosa moist. NECK: No JVD, no neck masses. No carotid bruits. CARDIOVASCULAR: S1 and S2 heard, tachycardia, irregular rhythm. RESPIRATORY SYSTEM: Normal AP diameter. No accessory muscle use. No wheezing, no crackles. ABDOMEN: Soft, bowel sounds present, nontender, no distention. CENTRAL NERVOUS SYSTEM: Cranial nerves II through XII grossly intact, nonfocal. EXTREMITIES: No edema, no erythema. Principal Diagnosis A. fib with RVR HOCM Discharge Exam GENERAL: The patient is alert, oriented, not in acute distress. HEENT: NC/AT. EOMI. Pupils equal, round and reactive to light. Oral mucosa moist. NECK: No JVD, no neck masses. No carotid bruits. CARDIOVASCULAR:RRR, S1, S2 RESPIRATORY SYSTEM: Normal AP diameter. No accessory muscle use. No wheezing, no crackles. ABDOMEN: Soft, bowel sounds present, nontender, no distention. NEURO:Alert oriented, answers appropriately, no facial asymmetry, moves extremities EXTREMITIES: No edema, no erythema. Discharge Data Allergies Allergy/AdvReac Type Severity Reaction Status Date / Time morphine Allergy Severe RESP. Verified 03/08/22 22:25 DISTRESS Consultations 03/09/22 00:06 ED Decision to Admit Stat 03/09/22 08:00 Consult Cardiology Routine Hospital Course (1) Atrial fibrillation with rapid ventricular response: This is a 67-year-old female, who presents with rapid AFib. 1. History of rapid AFib . hx of hypertrophic cardiomyopathy. Started on Cardizem drip and IV heparin in ED Now stopped - transitioned to Eliquis Pt converted to sinus rhythm Echo obtained Compared to most recent echo from February 10, 2022, patient is now in A. fib, otherwise unchanged. No segmental LV wall motion abnormalities are noted. LV is normal in size. There is moderate concentric LVH. There is moderate asymmetric LV hypertrophy. LV is hyperdynamic. EF is greater than 70%. Mild tricuspid regurg. There is mild mitral regurg. Cardiology consulted -continue home dose metoprolol, may need uptitrate losartan. Started Eliquis. 2. History of hypertrophic cardiomyopathy, follows with Cardiology. She had an echo on 02/10/2022, showing asymmetric hypertrophy involves the septum thickness measuring 2.4 cm at mid septum. Follow repeat echo. Recently had zio patch . There is a plan for cardiac MRI as per the Cardiology notes. Also plan to discuss about the defibrillator implantation as per the Cardiology notes. Await cardiac input. 3. Hypertension. Continue losartan and metoprolol succinate. Monitor the blood pressure. 4. History of anxiety. On Ativan p.r.n. 5. Vitamin D deficiency, vitamin supplementation. 6. Prediabetes. Sugars are running at 260. Current HbA1c 6.9% - follow up with PCP DVT prophylaxis. On IV heparin -> eliquis DISPOSITION: Plan to DC home today Total Time Total Time Spent Total Time Spent (In Minutes): 40 Discharge Plan Discharge Items Patient Disposition: Home - Self-Care Reason For Visit: ERATIC HEART BEAT, TACHYCARDIA Discharge Diagnosis: A. fib with RVR HOCM Activity: Per Instructions section Non-emergency contact: Primary Care Provider and Referral Clerk Call non-emergency contact if: you have any medication questions and your symptoms worsen Follow-up/Referrals: Silas Lua MD [Primary Care Provider] - (Date & Time 03/16/2022 12:20 PM Provider Silas Lua MD Department Family [facility] ) Diet: Carb Consistent or DM2 and Heart Healthy Addtl Attending Provider Instructions: Follow-up with your primary care doctor within 1 week. The appointment was scheduled for you for March 16. You will also follow-up with cardiology. You will be contacted about the appointment. Continue all your home medications. In addition, start taking Eliquis 5 mg twice a day. This medication is a blood thinner. Recommend to monitor your blood pressure at home, if you are able to. Record your numbers. Discuss your numbers with your primary care doctor and/or post commander, as your blood pressure medication may need further adjustment. Pending Studies at Discharge: No Stand-Alone Forms: My [employer], Smoking Cessation Medications and DC Order Prescriptions: New Eliquis 5 mg tablet 5 mg PO Q12H Qty: 60 0RF Continued losartan 50 mg tablet 50 mg PO QAM metoprolol succinate 100 mg tablet extended release 24 hr 100 mg PO QAM lorazepam 0.5 mg tablet 0.5 - 1 mg PO DAILY PRN (Reason: Anxiety) cholecalciferol (vitamin D3) [Vitamin D3] 50 mcg (2,000 unit) Capsule 50 mcg PO DAILY Vyzulta 0.024 % drops 1 drp OPB HS Discharge Orders: Discharge Order (Routine); Ordered 03/09/22 Ordered By: Tesfaye Tucker Admission Data Admit Date/Time: 03/09/22 01:20 Attending Provider: Tesfaye Tucker Admit Provider: Jean Carlos Meyer Primary Care Provider: Silas Lua Other Providers: Jean Carlos Meyer ; Alvarez Meléndez ; Sly Eden
--- NOTE | 2022-03-09 14:36 | Electrocardiogram Report ---
Test Reason : Blood Pressure : / mmHG Vent. Rate : 155 BPM Atrial Rate : 144 BPM P-R Int : 000 ms QRS Dur : 086 ms QT Int : 288 ms P-R-T Axes : 000 -47 052 degrees QTc Int : 462 ms Atrial fibrillation with rapid ventricular response Left anterior fascicular block Nonspecific ST abnormality Abnormal ECG When compared with ECG of 12-DEC-2007 14:57, Atrial fibrillation has replaced Sinus rhythm Vent. rate has increased BY 86 BPM Left anterior fascicular block is now Present ST now depressed in Inferior leads ST now depressed in Lateral leads Confirmed by Luís Greer ([id number]) on 03/09/2022 2:36:12 PM Referred By: REFERRED SELF Confirmed By:Luís Greer
[2022-03-09] MEDS ORDERED: APIXABAN 2.5 MG TAB PO SCH (15:00)
--- NOTE | 2022-03-10 11:20 | Electrocardiogram Report ---
Test Reason : Blood Pressure : / mmHG Vent. Rate : 079 BPM Atrial Rate : 079 BPM P-R Int : 216 ms QRS Dur : 088 ms QT Int : 420 ms P-R-T Axes : 040 -53 045 degrees QTc Int : 481 ms Sinus rhythm with 1st degree A-V block Left anterior fascicular block Abnormal ECG When compared with ECG of 08-MAR-2022 21:02, Sinus rhythm has replaced Atrial fibrillation Vent. rate has decreased BY [address] no longer depressed in Inferior leads ST no longer depressed in Lateral leads Confirmed by Natan Moore ([id number]) on 03/10/2022 11:19:32 AM Referred By: REFERRED SELF Confirmed By:Natan Moore
== END 2022-03-09 15:46 | disposition home or self-care (01) | DRG 310 ==
LOC: ED 20:53 → EDINP 03-09 01:20 → SUATTDRO 03-09 01:20 → 2E 03-09 01:56